=== PATIENT | female | born 1955 | race Caucasian/White ===

== ENCOUNTER 2019-02-18 02:18 | Emergency (ER) | payer BC ==
[~2019-02-18] VITALS: Ht 172.7 cm; Wt 81.8 kg
[2019-02-18] MEDS ORDERED: aspirin 81mg tab.chew PO ONE (02:40)
[2019-02-18 02:46] LABS: BASOPHILS # (AUTO) 0.1 X10'3 (0-0.2); BASOPHILS % (AUTO) 1.1 % (0-1); EOSINOPHILS # (AUTO) 0.1 X10'3 (0-0.9); EOSINOPHILS % (AUTO) 1.7 % (0-6); HEMATOCRIT 42.1 % (35.0-45.0); HEMOGLOBIN 14.6 g/dl (12.0-16.0); LYMPHOCYTES # (AUTO) 1.6 X10'3 (1.1-4.8); LYMPHOCYTES % (AUTO) 28.7 % (21-51); MEAN CORPUSCULAR HEMOGLOBIN 32.9 PG (27.0-31.0); MEAN CORPUSCULAR HGB CONC 34.6 g/dL (33.0-36.5); MEAN CORPUSCULAR VOLUME 94.9 FL (78-98); MEAN PLATELET VOLUME 7.9 FL (7.4-10.4); MONOCYTES # (AUTO) 0.8 X10'3 (0-0.9); NEUTROPHILS % (AUTO) 54.5 % (42-75); PLATELET COUNT 258 X10'3 (140-440); RED BLOOD COUNT 4.43 X10'6 (4.20-5.60); RED CELL DISTRIBUTION WIDTH 12.5 % (11.5-14.5); WHITE BLOOD COUNT 5.5 X10'3 (4.5-11.0)
[2019-02-18 03:03] LABS: ALANINE AMINOTRANSFERASE 27 U/L (12-78); ALBUMIN/GLOBULIN RATIO 1.1 (1.1-1.5); ALKALINE PHOSPHATASE 88 IU/L (46-116); ANION GAP 12 (8-16); ASPARTATE AMINO TRANSFERASE 12 U/L (10-37); BILIRUBIN,TOTAL 0.5 MG/DL (0.1-1.0); BLOOD UREA NITROGEN 14 MG/DL (7-18); BUN/CREATININE RATIO 17.1 (6.6-38.0); CALCIUM 9.4 MG/DL (8.5-10.1); CHLORIDE 107 MMOL/L (99-107); CREATININE 0.82 MG/DL (0.40-0.90); GLUCOSE 110 MG/DL (70-104); POTASSIUM 3.8 MMOL/L (3.5-5.1); SODIUM 145 MMOL/L (135-145); TOTAL CARBON DIOXIDE 25.6 MMOL/L (24-32); TOTAL PROTEIN 7.5 G/DL (6.4-8.2); eGFR 71 ML/MIN
[2019-02-18 03:05] LABS: PARTIAL THROMBOPLASTIN TIME 25 SECONDS (22-32)
[2019-02-18 03:07] LABS: D-DIMER < 0.19 MG/L FEU (0-0.50)
[2019-02-18 03:10] LABS: MAGNESIUM 2.1 MG/DL (1.5-2.4); TROPONIN I < 0.04 NG/ML (0.0-0.05)
--- NOTE | 2019-02-18 03:44 | NUR ---
Pt reports pain is still 5/10 in her upper back, shoulders and neck. Pt states "it feels stiff."
[2019-02-18] MEDS ORDERED: ketorolac trometh. 30mg/ml inj. IV ONE (04:00)
--- NOTE | 2019-02-18 04:12 | NUR ---
Pt ambualted to restroom, no assistance required. Pt denies any increase in CP or tightness, denies SOB. Will continue to monitor.
--- NOTE | 2019-02-18 05:05 | NUR ---
Pt reports pain has resolved. Resting comfortably in NAD. Will continue to monitor.
--- NOTE | 2019-02-18 05:40 | NUR ---
Blood drawn for 3 hr Trop and taken to lab.
[2019-02-18 07:11] VITALS: BP 125/71
== END 2019-02-18 07:18 | disposition home or self-care (01) ==
LOC: ER 02:18
DX: R07.89 Other chest pain (principal); Z88.2 Allergy status to sulfonamides
CPT/HCPCS: 36415; 71045; 80053; 83735; 83880; 84484; 85025; 85379; 85610; 85730; 93005; 96374; 99284; J1885

== ENCOUNTER 2021-05-07 14:12 | Outpatient (CLI) | payer SELFPAY | END 2021-05-07 23:59 | disposition home or self-care (01) | LOC: HW VAS 14:12 | DX: Z13.6 Encounter for screening for cardiovascular disorders (principal) ==

== ENCOUNTER 2025-04-18 13:28 | Outpatient (CLI) | payer MEDICARE ==
[~2025-04-18 13:28] MED LIST: iohexol 300mg/ml 100ml inj. ONE
--- NOTE | 2025-04-18 16:24 | RADIOLOGY REPORT ---
EXAM: CT CT CHEST W/ IV CONTRAST Reason for study/ Clinical History: PNEUMONIA Comparison Study: None Exam Date: 04/18/2025 01:50 PM Radiation Dose Information: CT Dose: CTDI volume is 16 mGy. Dose-length product is 619 mGy*cm TECHNIQUE: After the uneventful administration of intravenous contrast intravenously, CT imaging was performed through the chest. Coronal and sagittal reformations were performed by the technologist. FINDINGS: Lower neck: 2 cm left thyroid nodule.. Lungs and Pleura: 2.9 cm irregular dominant nodule in the left lower lobe, with adjacent satellite nodules measuring up to 1.3 cm. No pleural effusions. Lymph nodes: No mediastinal, hilar, or axillary lymphadenopathy. Cardiovascular and Mediastinum: No significant pericardial effusion. No significant coronary calcifications. Osseous and soft tissues: No suspicious osseous lesions. Upper abdomen: Multiple hepatic cysts. IMPRESSION: 2.9 cm irregular dominant nodule in the left lower lobe, with adjacent satellite nodules measuring up to 1.3 cm. This is concerning for primary lung neoplasm. Pneumonia is possible but less likely given the appearance. Recommend oncologic consultation and/or PET-CT for further evaluation. 2.2 cm left thyroid nodule. Recommend nonurgent thyroid ultrasound.
== END 2025-04-18 23:59 | disposition home or self-care (01) ==
LOC: RAD 13:28
PROVIDERS: ATTEND Family Medicine
DX: R91.8 Other nonspecific abnormal finding of lung field (principal); J18.9 Pneumonia, unspecified organism; E04.1 Nontoxic single thyroid nodule
CPT/HCPCS: 71260; Q9967